=== PATIENT | female | born 1990 | race Two or more races ===

== ENCOUNTER 2022-03-01 06:58 | Day surgery (SDC) | payer OTHER | END 2022-03-01 16:15 | disposition home or self-care (01) | LOC: CIR.AMB 06:58 | PROVIDERS: ATTEND Obstetrics & Gynecology Maternal & Fetal Medicine | DX: O03.4 Incomplete spontaneous abortion without complication (principal); Z20.822 Contact with and (suspected) exposure to COVID-19 ==

== ENCOUNTER 2022-11-03 12:38 | Outpatient (CLI) | payer OTHER | END 2022-11-03 13:39 | disposition home or self-care (01) | LOC: NST 12:38 | PROVIDERS: ATTEND Obstetrics & Gynecology | DX: Z34.83 Encounter for supervision of other normal pregnancy, third trimester (principal) ==

== ENCOUNTER 2022-11-24 13:03 | Inpatient (IN) | payer OTHER ==
[~2022-11-24] VITALS: Ht 154.9 cm; Wt 61.2 kg
[2022-11-24] MEDS ORDERED: PRENATAL TABLE1 EAC1 PO (14:26)
== END 2022-11-27 09:51 | disposition home or self-care (01) | DRG 833 ==
LOC: LDR 13:03
PROVIDERS: ADMIT Obstetrics & Gynecology Gynecology; ATTEND Obstetrics & Gynecology Gynecology
PROC: 4A1HXCZ Monitoring of Products of Conception, Cardiac Rate, External Approach (ICD-10-PCS; principal; 2022-11-24)
DX: O47.03 False labor before 37 completed weeks of gestation, third trimester (principal); Z3A.35 35 weeks gestation of pregnancy; Z20.822 Contact with and (suspected) exposure to COVID-19

== ENCOUNTER 2022-12-08 20:15 | Outpatient (CLI) | payer OTHER ==
[~2022-12-08 20:15] MED LIST: PRENATAL TABLE1 EAC1 PO
== END 2022-12-08 21:47 | disposition home or self-care (01) ==
LOC: NST 20:15
PROVIDERS: ATTEND Obstetrics & Gynecology Maternal & Fetal Medicine
DX: Z34.83 Encounter for supervision of other normal pregnancy, third trimester (principal)

== ENCOUNTER 2022-12-08 21:52 | Inpatient (IN) | payer OTHER ==
[~2022-12-08] VITALS: Ht 154.9 cm; Wt 61.2 kg
== END 2022-12-09 09:18 | disposition home or self-care (01) | DRG 833 ==
LOC: LDR 21:52
PROVIDERS: ADMIT Obstetrics & Gynecology Gynecology; ATTEND Obstetrics & Gynecology Gynecology
PROC: 4A1HXCZ Monitoring of Products of Conception, Cardiac Rate, External Approach (ICD-10-PCS; principal; 2022-12-08)
DX: O60.03 Preterm labor without delivery, third trimester (principal); Z3A.36 36 weeks gestation of pregnancy; Z20.822 Contact with and (suspected) exposure to COVID-19

== ENCOUNTER 2022-12-19 08:16 | Outpatient (CLI) | payer OTHER ==
[2022-12-19] MEDS ORDERED: MIRALAX17 GM PO (10:10)
[2022-12-19] MEDS ORDERED: PEPCID AC20 MG PO (10:10)
== END 2022-12-19 08:48 | disposition home or self-care (01) ==
LOC: NST 08:16
PROVIDERS: ATTEND Obstetrics & Gynecology Maternal & Fetal Medicine
DX: Z34.83 Encounter for supervision of other normal pregnancy, third trimester (principal)

== ENCOUNTER 2022-12-19 09:40 | Inpatient (IN) | payer OTHER ==
[~2022-12-19] VITALS: Ht 154.9 cm; Wt 63.5 kg
[2022-12-19] MEDS ORDERED: PEPCID AC20 MG PO (10:10)
[2022-12-19] MEDS ORDERED: MIRALAX17 GM PO (10:10)
== END 2022-12-21 11:48 | disposition home or self-care (01) | DRG 807 ==
LOC: LDR 09:40 → OB/GYN 16:53
PROVIDERS: ADMIT Obstetrics & Gynecology Maternal & Fetal Medicine; ATTEND Obstetrics & Gynecology Maternal & Fetal Medicine
PROC: 10E0XZZ Delivery of Products of Conception, External Approach (ICD-10-PCS; principal; 2022-12-19)
PROC: 0KQM0ZZ Repair Perineum Muscle, Open Approach (ICD-10-PCS; 2022-12-19)
PROC: 4A1HXCZ Monitoring of Products of Conception, Cardiac Rate, External Approach (ICD-10-PCS; 2022-12-19)
DX: O70.1 Second degree perineal laceration during delivery (principal); Z37.0 Single live birth; Z3A.39 39 weeks gestation of pregnancy; Z20.822 Contact with and (suspected) exposure to COVID-19